=== PATIENT | male | born 1955 | race Caucasian/White ===

== ENCOUNTER 2024-07-28 11:35 | Outpatient (CLI) | payer MEDICARE, SELFPAY ==
--- NOTE | ~2024-07-28 | PE_ITS ---
EXAMINATION: PET skull to mid thigh DATE: 07/28/2024 13:58 INDICATION: Renal cell carcinoma TECHNIQUE: Blood glucose level was 96 mg/dL. 10.656 mCi of 18-fluorodeoxyglucose (18-FDG) was adminis tered i.v. Low dose computed tomography (CT) images were acquired from the base of the brain to the p roximal thighs for attenuation correction and anatomic localization. Positron emission tomography (PE T) images were acquired in the same distribution beginning 52 minutes after injection. Images includi ng fused PET/CT images were reconstructed in axial, coronal, and sagittal planes. Automated exposure control technique was employed. The dose-length product was 991.43mGy-cm. COMPARISON: None FINDINGS: Head/neck: There is symmetric increased activity in the oral cavity, parapharyngeal tonsils, laryngeal muscles a nd ocular muscles without CT correlate, likely physiologic. No pathologically enlarged cervical lymph adenopathy or suspicious foci of increased FDG uptake in the visualized head or neck. Chest: Respiratory motion and mild dependent atelectasis in the bilateral lungs. No pneumonia, pulmonary toby ma or pleural effusion. Heart size is normal. Atherosclerotic coronary artery calcification. No peric ardial effusion. Calcified left hilar lymph nodes consistent with old granulomatous disease. No patho logically enlarged or FDG avid thoracic lymphadenopathy. Abdomen/pelvis/proximal thighs: Unchanged gas and fluid-filled diverticulum arising from the gastric fundus. Status post left nephrec rosa and adrenalectomy reportedly for renal cell carcinoma. No abnormal soft tissue deposits or incre ased FDG uptake at the nephrectomy bed to suggest residual/locally recurrent disease. Physiologic bossman al accumulation and excretion of FDG activity in the right kidneys, bladder and along portions of the right ureter. There is enlargement of the lower pole of the right kidney with increased uptake at th e periphery of an indeterminate ill-defined 3-4 cm hypodense lesion which is relatively photopenic on the PET imaging. There are multiple small collateral vessels about the lower pole of the right kidne y which raises concern for malignancy. Normal degree and heterogenous pattern of increased uptake thr oughout the liver without radiologic correlate or dominant FDG avid lesion. Multiple gallstones in th e dependent aspect of the normal-appearing gallbladder. The pancreas, spleen and bilateral adrenal gl ands are normal. Mild uptake scattered throughout the bowels without radiologic correlate, also likel y physiologic. Mild scattered diverticulosis without adjacent comparison to suggest diverticulitis. P rostatomegaly measuring 4.7 x 4.6 cm. Small fat-containing right inguinal hernia. No other abnormal f oci of increased FDG uptake or pathologically enlarged lymphadenopathy in the abdomen, pelvis or prox imal thighs. Musculoskeletal: Mild to moderate scattered degenerative skeletal changes. No suspicious lytic, blastic or abnormally FDG avid bone lesions. IMPRESSION: 1. Status post left nephrectomy and adrenalectomy for reported renal cell carcinoma with no evident l ocally recurrent disease. 2. Poorly defined 3-4 cm hypodense lesion at the lower pole the right kidney with increased surroundi ng collateral vessels which is concerning for a second renal cell carcinoma. Recommend further evalua tion with pre and postcontrast MRI or CT. 3. No FDG avid lesions suspicious for metastatic disease in the neck, chest, abdomen or pelvis. Reviewed, dictated and finalized at location A. E OUTREACH CASE MANAGER IMPRESSION: 1. Status post left nephrectomy and adrenalectomy for reported renal cell carci noma with no evident locally recurrent disease. 2. Poorly defined 3-4 cm hypodense lesion at the lower pole the right kidney wi th increased surrounding collateral vessels which is concerning for a second re nal cell carcinoma. Recommend further evaluation with pre and postcontrast MRI or CT. 3. No FDG avid lesions suspicious for metastatic disease in the neck, chest, ab domen or pelvis.
[2024-07-28 12:33] LABS: Glucose Point of Care 96 mg/dl (65-105)
--- OUTSIDE RECORDS SUMMARY | 2024-07-28 12:59 | XMS_ITS | Referral Summary ---
Author Organization [facility] Address [address] [place] [address] Care Team Providers Care Fine Jewelry Sales Associate Name Role Phone Mignon Vale MD Primary Care Provider Encounters Date Type Department Care Team Description 07/03/2024 12:30 PM ROLLER STAKER Lab [facility] - Lab Collection [address] [place] [id number] Polycythemia, secondary 07/03/2024 12:15 PM ROLLER STAKER Lab [facility] Oncology Lab [address] [place] [phone] 07/03/2024 11:15 AM ROLLER STAKER Office Visit [facility] Hematology [address] [place] [phone] Afsaneh Hull MD Polycythemia, secondary (Primary Dx) 06/25/2024 Telephone [facility] Hematology [address] [place] [phone] Cristina Jackson from Last 3 Months Allergies No known active allergies Medications tamsulosin (FLOMAX) 0.4 mg extended release capsuleIndicatio ns:benign prostatic hyperplasia with lower urinary tract sx Take 1 capsule (0.4 mg total) by mouth nightly 9 Active multivitamin-Ca- iron-minerals tabletIndication s:Vitamin Deficiency Prevention Take 1 tablet by mouth centrifugal wax molder before breakfast Active oxymetazoline (AFRIN) 0.05 % nasal spray Administer 2 sprays into each nostril as needed for congestion Active pravastatin (PRAVACHOL) 10 mg tablet Take 1 tablet (10 mg total) by mouth daily 1 Active Allergy Relief D-24hr 10-240 mg per 24 hr tablet Take 1 tablet by mouth daily 2 Active fluticasone propionate (FLONASE) 50 mcg/actuation nasal spray USE 2 SPRAYS IN EACH NOSTRIL AT BEDTIME 3 Active Active Problems Problem Noted Date Diagnosed Date Renal mass 03/12/2019 Overview (03/12/2019): Added automatically from request for surgery [id number] Deviated nasal septum 04/23/2014 Social History Tobacco Use Types Packs/Day Years Used Date Smoking Tobacco: Never Smokeless Tobacco: Never Alcohol Use Standard Drinks/Week Comments Yes 0 (1 standard drink = 0.6 oz pur e alcohol) socially Sex and Gender Information Value Date Recorded Sex Assigned at Not on file Legal Sex Male 1:18 PM ROLLER STAKER Gender Identity Not on file Sexual Orientation Not on file Last Filed Vital Signs Vital Sign Reading Time Taken Comments Blood Pressure 169/109 07/03/2024 10:51 AM ROLLER STAKER Pulse 76 07/03/2024 10:51 AM ROLLER STAKER Temperature 36.5 C (97.7 F) 07/03/2024 10:51 AM ROLLER STAKER Respiratory Rate 17 07/03/2024 10:51 AM ROLLER STAKER Oxygen Saturation 97% 07/03/2024 10:51 AM ROLLER STAKER Inhaled Oxygen Concentration - - Weight 88 kg (194 lb) 07/03/2024 10:51 AM ROLLER STAKER Height 185.4 cm (6' 1 ) 07/03/2024 10:51 AM ROLLER STAKER Body Mass Index 25.6 07/03/2024 10:51 AM ROLLER STAKER Plan of Treatment Not on file Procedures Procedure Name Priority Date/Time Associated Diagnosis Comments EGFR Routine 07/03/2024 12:21 PM ROLLER STAKER Polycythemia, secondary DIFFERENTIAL AUTO Routine 07/03/2024 12: 21 PM ROLLER STAKER Polycythemia, secondary CBC WITH AUTO DIFFERENTIAL Routine 07/03/2024 12:21 PM ROLLER STAKER Polycythemia, secondary ERYTHROPOIETIN Routine 07/03/2024 12:21 PM ROLLER STAKER Polycythemia, secondary COMPREHENSIVE METABOLIC PANEL Routine 07/03/2024 12:21 PM ROLLER STAKER Polycythemia, secondary FERRITIN Routine 07/03/2024 12:21 PM ROLLER STAKER Polycythemia, secondary IRON PROFILE W/ IBC Routine 07/03/2024 1 2:21 PM ROLLER STAKER Polycythemia, secondary from Last 3 Months Results * (ABNORMAL) eGFR (07/03/2024 12:21 PM ROLLER STAKER) eGFR 40(L) >=60 mL/min/1. 73 m2 Comment: Interpretive Data Reference Interval Normal >/= 90 mL/min/1.73m2 Mildly decreased* 60 - 89 mL/min/1.73m2 Mildly to moderately decreased 45 - 59 mL/min/1.73m2 Moderately to severely decreased 30 - 44 mL/min/1.73m2 Severely decreased 15 - 29 mL/min/1.73m2 Kidney Failure < 15 mL/min/1.73m2 *Relative to young adult level Estimated glomerular filtration rate is determined by the 2020 CKD-EPI equation recommended by the National Kidney [employer] (A Unifying Approach to GFR Estimation: Recommendations of the NKF-ASK Task Force on Reassessing the Inclusion of Race in Diagnosing Kidney Disease, JASN 2020). The CKD-EPI equation should not be used for patients with unstable renal function and has not been validated in children and those over 70. Current interpretive data was last reviewed 2021. Blood 07/03/2024 12:2 1 PM ROLLER STAKER 07/03/2024 12:28 PM ROLLER STAKER us Afsaneh Hull MD LAB BLOOD ORDERABLES Pretty l Result [facility] Department [place] [address] * Differential, auto (07/03/2024 12:21 PM ROLLER STAKER) Neutrophil abs 3.9 1.5 - 6.5 K/cumm Comment:Testing performed by : [facility], [address] [place] [phone] Lymphocyte abs 1.9 0.8 - 3.3 K/cumm [facility] Comment:Testing performed by : [facility], [address] [place] [phone] Monocyte abs 0.6 0.2 - 0.8 K/cumm [facility] Comment:Testing performed by : [facility], [address] [place] [phone] Eosinophil abs 0.0 0.0 - 0.5 K/cumm [facility] Comment:Testing performed by : [facility], [address] [place] [phone] Basophil abs 0.0 0.0 - 0.1 K/cumm [facility] Comment:Testing performed by : [facility], [address] [place] [phone] Neutrophil pct 60.8 % [facility] Comment: Interpretive Data Percent cell count reference ranges are not reported, since discordance with absolute values may lead to misinterpretation of CBC data. Current Interpretive Data was last revised on 2017. Testing performed by: [facility], [address] [place] [phone] Lymphocyte pct 29.5 % [facility] Comment: Interpretive Data Percent cell count reference ranges are not reported, since discordance with absolute values may lead to misinterpretation of CBC data. Current Interpretive Data was last revised on 2017. Testing performed by: [facility], [address] [place] [phone] Monocyte pct 8.7 % [facility] Comment: Interpretive Data Percent cell count reference ranges are not reported, since discordance with absolute values may lead to misinterpretation of CBC data. Current Interpretive Data was last revised on 2017. Testing performed by: [facility], [address] [place] [address] [place] [phone] Eosinophil pct 0.6 % [facility] Comment: Interpretive Data Percent cell count reference ranges are not reported, since discordance with absolute values may lead to misinterpretation of CBC data. Current Interpretive Data was last revised on 2017. Testing performed by: [facility], [address] [place] [phone] Basophil pct 0.4 % [facility] Comment: Interpretive Data Percent cell count reference ranges are not reported, since discordance with absolute values may lead to misinterpretation of CBC data. Current Interpretive Data was last revised on 2017. Testing performed by: [facility], [address] [place] [phone] Blood 07/03/2024 12:2 1 PM ROLLER STAKER 07/03/2024 12:27 PM ROLLER STAKER Afsaneh Hull MD LAB BLOOD ORDERABLES Pretyt l Result Performing Organization Address City/[facility]/ZIP Co de Phone Number [facility] [place] [address] * (ABNORMAL) Iron profile w/ IBC (07/03/2024 12:21 PM ROLLER STAKER) [facility] Iron 39(L) 50 - 150 mcg/dL TIBC 362 250 - 400 mcg/dL [facility] Transferrin saturation 11(L) 20 - 50 % [facility] Blood 07/03/2024 12:2 1 PM ROLLER STAKER 07/03/2024 12:28 PM ROLLER STAKER Afsaneh Hull MD LAB BLOOD ORDERABLES Pretty l Result [facility] Department [place] [address] * (ABNORMAL) CBC with auto differential (07/03/2024 12:21 PM ROLLER STAKER) Pathologist [facility] WBC 6.4 3.8 - 9.9 K/cumm Comment:Testing performed by : [facility], [address] [place] [address] Hgb 18.7(H) 13.0 - 17.5 g/dL [facility] Comment:Testing performed by : [facility], [address] [place] [address] Hct 57.9(H) 38.9 - 50.3 % [facility] Comment:Testing performed by : [facility], [address] [place] [address] Plt 174 150 - 400 K/cumm [facility] Comment:Testing performed by : [facility], [address] [place], [place] [phone] MPV 7.5 6.8 - 10.4 fL [facility] Comment:Testing performed by : [facility], [address] [place], [place] [phone] RBC 6.67(H) 4.30 - 5.80 M/cumm [facility] Comment:Testing performed by : [facility], [address] [place] [address] MCV 86.8 81.3 - 96.4 fL [facility] Comment:Testing performed by : [facility], [address] [place] [address] MCH 28.0 27.1 - 33.3 pg [facility] Comment:Testing performed by : [facility], [address] [place] [address] MCHC 32.3 32.3 - 35.7 g/dL [facility] Comment:Testing performed by : [facility], [address] [place] [address] RDW CV 15.9(H) 11.1 - 14.9 % [facility] Comment:Testing performed by : [facility], [address] [place] [address] NRBC abs 0.00 0.00 - 0.01 K/cumm [facility] Comment:Testing performed by : [facility], [address] [place] [address] [place] [phone] Blood 07/03/2024 12:2 1 PM ROLLER STAKER 07/03/2024 12:27 PM ROLLER STAKER Afsaneh Hull MD LAB BLOOD ORDERABLES Pretty l Result Performing Organization Address City/[facility] Co de Phone Number [facility] [place] [address] * (ABNORMAL) Erythropoietin (07/03/2024 12:21 PM ROLLER STAKER) Pathologist [facility] Erythropoietin 29.5(H) 2.6 - 18.5 mIUnits/m L [facility] Comment: Test Performed by: [facility] [address] [place] [address] Monument Setter Helper: Lawrence Barragan Ph.D.; CLIA# [id number] Blood 07/03/2024 12:2 1 PM ROLLER STAKER 07/03/2024 2:35 PM ROLLER STAKER Afsaneh Hull MD LAB BLOOD ORDERABLES Pretty l Result Performing Organization Address [facility] Co de Phone Number [facility] [place] [address] [facility] * (ABNORMAL) Ferritin (07/03/2024 12:21 PM ROLLER STAKER) [facility] Ferritin 20(L) 30 - 400 ng/mL Blood 07/03/2024 12:2 1 PM ROLLER STAKER 07/03/2024 12:28 PM ROLLER STAKER Afsaneh Hull MD LAB BLOOD ORDERABLES Pretty l Result Performing Organization Address City/[facility]/ZIP Co de Phone Number [facility] [place] [address] * (ABNORMAL) Comprehensive metabolic panel (07/03/2024 12:21 PM ROLLER STAKER) Sodium 139 135 - 145 mmol/L Potassium, pl 5.1(H) 3.3 - 4.9 mmol/L [facility] Chloride 102 97 - 110 mmol/L [facility] CO2 31 22 - 32 mmol/L [facility] Anion gap 6 2 - 15 mmol/L [facility] BUN 22 6 - 25 mg/dL [facility] Creatinine 1.83(H) 0.80 - 1.30 mg/dL [facility] Glucose 92 70 - 199 mg/dL [facility] Comment: Interpretive Data Fasting glucose >/= 126 mg/dl is diagnostic for diabetes. Fasting is defined as no caloric intake for at least 8 hours. Fasting glucose between 100 mg/dl to 125 mg/dl is diagnostic of prediabetes. In a patient with classic symptoms of hyperglycemia or hyperglycemic crisis, a random glucose >/= 200 mg/dl is diagnostic for diabetes. In the absence of unequivocal hyperglycemia, results should be confirmed by repeat testing. The classification and Diagnosis of Diabetes Diabetes Care 2021; 46: S19-S40. Current interpretive data was last revised 2022. Calcium 10.3 8.5 - 10.3 mg/dL [facility] Bilirubin, total 0.6 0.1 - 1.2 mg/dL [facility] Protein, pl 8.1 6.5 - 8.5 g/dL [facility] Albumin 4.3 3.5 - 5.0 g/dL [facility] Alk phos 69 40 - 130 Units/L [facility] ALT 9 7 - 55 Units/L [facility] AST 18 10 - 50 Units/L [facility] Blood 07/03/2024 12:2 1 PM ROLLER STAKER 07/03/2024 12:28 PM ROLLER STAKER us Afsaneh Hull MD LAB BLOOD ORDERABLES Pretty bueno Result [facility] Department [place] [address] from Last 3 Months Insurance [facility] HMO [facility]ICARE [facility] MEDICARE [facility] MEDICARE [facility] Advance Directives For more information, please contact: [phone] * Full Code (Latest Code Status on File) Date Activated Date Inactivated Comments 03/23/2019 4:34 PM 03/24/2019 2:03 PM Care Teams Fine Jewelry Sales Associate Relationship Specialty Start Date End Date Mignon Vale MD [address] [place] [address] PCP - General Internal Medicine 03/06/19
--- OUTSIDE RECORDS SUMMARY | 2024-07-28 12:59 | XMS_ITS | Encounter Summary ---
Author Organization [facility] Address [address] [place] [address] Care Team Providers Care Dental Patient Coordinator Name Role Phone Mignon Vale MD Primary Care Provider + [phone] Encounter Details Date Type Department Care Team (Late st Contact Info) Description 03/24/2019 Documentation [facility] [place] [facility] Case Management [address] [place] [address] Kathleen Hill RN Social History Tobacco Use Types Packs/Day Years Used Date Smoking Tobacco: Never Smokeless Tobacco: Never Alcohol Use Standard Drinks/Week Comments Yes 0 (1 standard drink = 0.6 oz pur e alcohol) socially Sex and Gender Information Value Date Recorded Sex Assigned at Not on file Legal Sex Male 1:18 PM FOOD BROKER Gender Identity Not on file Sexual Orientation Not on file documented as of this encounter Plan of Treatment Not on file documented as of this encounter Visit Diagnoses Not on filedocumented in this encounter Care Teams Dental Patient Coordinator Relationship Specialty Start Date End Date Mignon Vale MD [address] [place] [address] PCP - General Internal Medicine 03/06/19 documented as of this encounter
--- OUTSIDE RECORDS SUMMARY | 2024-07-28 12:59 | XMS_ITS | Clinical Summary ---
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 Active oxymetazoline (AFRIN) 0.05 % [...] (03/12/2019): Added automatically from request for surgery [id number] Deviated nasal septum 04/23/2014 Encounters Date Type Department Care Team Description 07/03/2024 12:30 PM DIRECTOR OF PARKS AND RECREATION Lab [facility] - Lab Collection [address] [facility] Floor [address] [place] [address] Polycythemia, secondary 07/03/2024 12:15 PM DIRECTOR OF PARKS AND RECREATION Lab [facility] Oncology Lab [address] [facility] Floor [address] [place] [address] 07/03/2024 11:15 AM DIRECTOR OF PARKS AND RECREATION Office Visit [facility] Hematology [facility] [address] [place] [address] Afsaneh Hull MD Polycythemia, secondary (Primary Dx) 06/25/2024 Telephone [facility] Hematology [facility] Floor [address] [place] [address] Cristina Jackson from Last 3 Months Surgical History Surgery Date Site/Laterality Comments NC SEPTOPLASTY/SUBMUCOUS RES ECJ W/WO CARTILAGE GRF Septoplasty - (Added by Conv) HERNIA REPAIR APPENDECTOMY NEPHRECTOMY 03/23/2019 Left Medical History Medical History Date Comments Hypertension Cancer of kidney, left (HCC) 02/2019 Family History Medical History Relation Name Comments Cancer Brother Family history of malignant neoplasm - (Added by TW Conv) Heart disease Father Coronary artery disease Mother s/p CABG Heart disease Mother Anesthesia problems Neg Hx Relation Name Status Comments Brother Father Mother Social History Tobacco Use Types Packs/Day Years Used Date Smoking Tobacco: Never Smokeless Tobacco: Never Alcohol Use Standard Drinks/Week Comments Yes 0 (1 standard drink = 0.6 oz pur e alcohol) socially Sex and Gender Information Value Date Recorded Sex Assigned at Not on file Legal Sex Male 1:18 PM DIRECTOR OF PARKS AND RECREATION Gender Identity Not on file Sexual Orientation Not on file Obstetrics History Last Filed Vital Signs Vital Sign Reading Time Taken Comments Blood Pressure 169/109 07/03/2024 10:51 AM DIRECTOR OF PARKS AND RECREATION Pulse 76 07/03/2024 10:51 AM DIRECTOR OF PARKS AND RECREATION Temperature 36.5 C (97.7 F) 07/03/2024 10:51 AM DIRECTOR OF PARKS AND RECREATION Respiratory Rate 17 07/03/2024 10:51 AM DIRECTOR OF PARKS AND RECREATION Oxygen Saturation 97% 07/03/2024 10:51 AM DIRECTOR OF PARKS AND RECREATION Inhaled Oxygen Concentration - - Weight 88 kg (194 lb) 07/03/2024 10:51 AM DIRECTOR OF PARKS AND RECREATION Height 185.4 cm (6' 1 ) 07/03/2024 10:51 AM DIRECTOR OF PARKS AND RECREATION Body Mass Index 25.6 07/03/2024 10:51 AM DIRECTOR OF PARKS AND RECREATION Plan of Treatment Health Maintenance Due Date Last Done Comments Colon Cancer Screening-Colonoscopy 1955 Depression Screening 1955 Fall Risk Assessment 1955 Hepatitis C Screening 1955 Prostate Cancer Screening-PSA 1955 Hepatitis B Screening 08/17/1973 Zoster Vaccine (2 of 3) 11/23/2015 09/28/2015 Pneumococcal vaccine 65+ (2 of 2 - PPSV23 or PCV20) 08/17/2020 09/28/2015 Well Visit 65+ 08/17/2020 Influenza Vaccine (#1) 2024 04/09/2019, 2017 DTaP/Tdap/Td Vaccine (3 - Td or Tdap) 02/20/202511/2014, 05/18/2013 Procedures Procedure Name Priority Date/Time Associated Diagnosis Comments EGFR Routine 07/03/2024 12:21 PM DIRECTOR OF PARKS AND RECREATION Polycythemia, secondary DIFFERENTIAL AUTO Routine 07/03/2024 12: 21 PM DIRECTOR OF PARKS AND RECREATION Polycythemia, secondary CBC WITH AUTO DIFFERENTIAL Routine 07/03/2024 12:21 PM DIRECTOR OF PARKS AND RECREATION Polycythemia, secondary ERYTHROPOIETIN Routine 07/03/2024 12:21 PM DIRECTOR OF PARKS AND RECREATION Polycythemia, secondary COMPREHENSIVE METABOLIC PANEL Routine 07/03/2024 12:21 PM DIRECTOR OF PARKS AND RECREATION Polycythemia, secondary FERRITIN Routine 07/03/2024 12:21 PM DIRECTOR OF PARKS AND RECREATION Polycythemia, secondary IRON PROFILE W/ IBC Routine 07/03/2024 1 2:21 PM DIRECTOR OF PARKS AND RECREATION Polycythemia, secondary from Last 3 Months Results * (ABNORMAL) eGFR (07/03/2024 12:21 PM DIRECTOR OF PARKS AND RECREATION) eGFR 40(L) >=60 mL/min/1. 73 m2 Comment: [...] reviewed 2021. Blood 07/03/2024 12:2 1 PM DIRECTOR OF PARKS AND RECREATION 07/03/2024 12:28 PM DIRECTOR OF PARKS AND RECREATION Afsaneh Hull MD LAB BLOOD ORDERABLES Pretty bueno Result [facility] [address] [facility] [place] [address] * Differential, auto (07/03/2024 12:21 PM DIRECTOR OF PARKS AND RECREATION) Neutrophil abs 3.9 1.5 - 6.5 K/cumm Comment:Testing performed by : [facility], [address] [place] [phone] Lymphocyte abs 1.9 0.8 - 3.3 K/cumm [facility] Comment:Testing performed by : [facility], [address] [place] [phone] Monocyte abs 0.6 0.2 - 0.8 K/cumm [facility] Comment:Testing performed by : [facility], [address] [place] [address] Eosinophil abs 0.0 0.0 - 0.5 K/cumm [facility] Comment:Testing performed by : [facility], [address] [place] [phone] Basophil abs 0.0 0.0 - 0.1 K/cumm [facility] Comment:Testing performed by : [facility], [address] [place] [address] Neutrophil pct 60.8 % [facility] Comment: Interpretive Data Percent cell count reference ranges are not reported, since discordance with absolute values may lead to misinterpretation of CBC data. Current Interpretive Data was last revised on 2017. Testing performed by: [facility], [address] [place], [place] [id number] Lymphocyte pct 29.5 % [facility] Comment: Interpretive Data Percent cell count reference ranges are not reported, since discordance with absolute values may lead to misinterpretation of CBC data. Current Interpretive Data was last revised on 2017. Testing performed by: [facility], [address] [place] [address] Monocyte pct 8.7 % [facility] Comment: Interpretive Data Percent cell count reference ranges are not reported, since discordance with absolute values may lead to misinterpretation of CBC data. Current Interpretive Data was last revised on 2017. Testing performed by: [facility], [address] [place] [address] Eosinophil pct 0.6 % [facility] Comment: Interpretive Data Percent cell count reference ranges are not reported, since discordance with absolute values may lead to misinterpretation of CBC data. Current Interpretive Data was last revised on 2017. Testing performed by: [facility], [address] [place] [phone] Basophil pct 0.4 % [facility] Comment: Interpretive Data Percent cell count reference ranges are not reported, since discordance with absolute values may lead to misinterpretation of CBC data. Current Interpretive Data was last revised on 2017. Testing performed by: [facility], [address] [place] [address] Blood 07/03/2024 12:2 1 PM DIRECTOR OF PARKS AND RECREATION 07/03/2024 12:27 PM DIRECTOR OF PARKS AND RECREATION Afsaneh Hull MD LAB BLOOD ORDERABLES Pretty l Result Performing Organization Address City/[facility] [address]/ZIP Co de Phone Number [facility] [place] [address] * (ABNORMAL) Iron profile w/ IBC (07/03/2024 12:21 PM DIRECTOR OF PARKS AND RECREATION) Iron 39(L) 50 - 150 mcg/dL TIBC 362 250 - 400 mcg/dL [facility] Transferrin saturation 11(L) 20 - 50 % [facility] Blood 07/03/2024 12:2 1 PM DIRECTOR OF PARKS AND RECREATION 07/03/2024 12:28 PM DIRECTOR OF PARKS AND RECREATION Afsaneh Hull MD LAB BLOOD ORDERABLES Pretty l Result Performing Organization Address [facility] [address]/[facility] Co de Phone Number [facility] [place] [address] * (ABNORMAL) CBC with auto differential (07/03/2024 12:21 PM DIRECTOR OF PARKS AND RECREATION) Pathologist [facility] WBC 6.4 3.8 - 9.9 K/cumm Comment:Testing performed by : [facility], [address] [place] [address] Hgb 18.7(H) 13.0 - 17.5 g/dL [facility] Comment:Testing performed by : [facility], [address] [place] [address] Hct 57.9(H) 38.9 - 50.3 % [facility] Comment:Testing performed by : [facility], [address] [place] [phone] Plt 174 150 - 400 K/cumm [facility] Comment:Testing performed by : [facility], [address] [place] [address] MPV 7.5 6.8 - 10.4 fL [facility] Comment:Testing performed by : [facility], [address] [place] [address] RBC 6.67(H) 4.30 - 5.80 M/cumm [facility] Comment:Testing performed by : [facility], [address] [place] [address] MCV 86.8 81.3 - 96.4 fL [facility] Comment:Testing performed by : [facility], [address] [place] [address] MCH 28.0 27.1 - 33.3 pg [facility] Comment:Testing performed by : [facility], [address] [place] [address] MCHC 32.3 32.3 - 35.7 g/dL [facility] Comment:Testing performed by : [facility], [address] [place] [address] RDW CV 15.9(H) 11.1 - 14.9 % [facility] Comment:Testing performed by : [facility], [address] [place] [address] NRBC abs 0.00 0.00 - 0.01 K/cumm [facility] Comment:Testing performed by : [facility], [address] [place] [address] Blood 07/03/2024 12:2 1 PM DIRECTOR OF PARKS AND RECREATION 07/03/2024 12:27 PM DIRECTOR OF PARKS AND RECREATION Afsaneh Hull MD LAB BLOOD ORDERABLES Pretty bueno Result [facility] [address] [facility] Department [place] [address] * (ABNORMAL) Erythropoietin (07/03/2024 12:21 PM DIRECTOR OF PARKS AND RECREATION) Pathologist [facility] Erythropoietin 29.5(H) 2.6 - 18.5 mIUnits/m L [place] [facility] Comment: Test Performed by: [facility] [address] [place] [address] [employer] Offset Press Operator: Lawrence Barragan Ph.D.; CLIA# [id number] Blood 07/03/2024 12:2 1 PM DIRECTOR OF PARKS AND RECREATION 07/03/2024 2:35 PM DIRECTOR OF PARKS AND RECREATION Afsaneh Hull MD LAB BLOOD ORDERABLES Pretty l Result Performing Organization Address City/[facility] [address]/ZIP Co de Phone Number [facility] [place] [address] [facility] * (ABNORMAL) Ferritin (07/03/2024 12:21 PM DIRECTOR OF PARKS AND RECREATION) [facility] Ferritin 20(L) 30 - 400 ng/mL Blood 07/03/2024 12:2 1 PM DIRECTOR OF PARKS AND RECREATION 07/03/2024 12:28 PM DIRECTOR OF PARKS AND RECREATION Afsaneh Hull MD LAB BLOOD ORDERABLES Pretty l Result Performing Organization Address [facility] [address]/[facility] de Phone Number [facility] Department [place] [address] * (ABNORMAL) Comprehensive metabolic panel (07/03/2024 12:21 PM DIRECTOR OF PARKS AND RECREATION) [facility] Sodium 139 135 - 145 mmol/L Potassium, pl 5.1(H) 3.3 - 4.9 mmol/L [facility] Chloride 102 97 - 110 mmol/L [facility] CO2 31 22 - 32 mmol/L [facility] Anion gap 6 2 - 15 mmol/L [facility] BUN 22 6 - 25 mg/dL [facility] Creatinine 1.83(H) 0.80 - 1.30 mg/dL [facility] Glucose 92 70 - 199 mg/dL [facility] Comment: Interpretive Data Fasting glucose >/= [...] 2022. Calcium 10.3 8.5 - 10.3 mg/dL [facility] Bilirubin, total 0.6 0.1 - 1.2 mg/dL [facility] Protein, pl 8.1 6.5 - 8.5 g/dL [facility] Albumin 4.3 3.5 - 5.0 g/dL [facility] Alk phos 69 40 - 130 Units/L [facility] ALT 9 7 - 55 Units/L [facility] AST 18 10 - 50 Units/L [facility] Blood 07/03/2024 12:2 1 PM DIRECTOR OF PARKS AND RECREATION 07/03/2024 12:28 PM DIRECTOR OF PARKS AND RECREATION Afsaneh Hull MD LAB BLOOD ORDERABLES Pretty l Result [facility] [address] [facility] [place] [address] from Last 3 Months Insurance [facility]/O Address[facility] [id number] [place] [address] MEDICARE [facility] MEDICARE [facility] MEDICARE AARP Advance Directives For more information, please contact: [phone] * Full Code (Latest Code Status on File) Date Activated Date Inactivated Comments 03/23/2019 4:34 PM 03/24/2019 2:03 PM Care Teams Stock Mixer Relationship Specialty Start Date End Date Mignon Vale MD [address] [id number] PCP - General Internal Medicine 03/06/19
== END 2024-07-28 11:36 | disposition home or self-care (01) ==
PROVIDERS: Visit Provider Internal Medicine
DX: C64.2 Malignant neoplasm of left kidney, except renal pelvis (principal)
CPT/HCPCS: 78815; A9552